=== PATIENT | male | born 1975 | race Caucasian/White ===

== ENCOUNTER 2018-07-05 01:42 | Outpatient (CLI) | payer BC, SELFPAY ==
[2018-07-05 11:21] LABS: Anion Gap 8.1 mmol/L (3-11); BUN 18 mg/dL (7-18); CO2 29.9 mmol/L (21.0-32.0); CREATININE 1.09 mg/dL (0.70-1.30); Calcium 8.8 mg/dL (8.5-10.1); Chloride 103 mmol/L (98-107); Cholesterol 230 mg/dL (50-200); Glucose 106 mg/dL (70-100); HDL Cholesterol 60 mg/dL (40-60); LDL CHOLESTEROL 156 mg/dL (<100); Potassium 4.3 mmol/L (3.5-5.1); Sodium 141 mmol/L (136-145); Triglyceride 107 mg/dL (30-150)
== END 2018-07-05 02:02 ==
PROVIDERS: PCP Family Medicine; Visit Provider Family Medicine
DX: Z00.00 Encounter for general adult medical examination without abnormal findings (principal); Z13.228 Encounter for screening for other metabolic disorders; Z13.220 Encounter for screening for lipoid disorders
CPT/HCPCS: 36415; 80048; 80061; 83721

== ENCOUNTER 2020-04-17 07:23 | Outpatient (CLI) | payer BC, SELFPAY ==
[2020-04-19 12:59] LABS: SARS-CoV-2 RNA Undetected (Undetected); SARS-CoV-2 Specimen Source Nasopharynx
== END 2020-04-17 07:43 ==
PROVIDERS: PCP Family Medicine; Visit Provider Family Medicine
DX: Z20.828 Contact with and (suspected) exposure to other viral communicable diseases (principal)
CPT/HCPCS: U0003

== ENCOUNTER 2020-09-10 02:52 | Outpatient (CLI) | payer BC, SELFPAY ==
[2020-09-11 19:01] LABS: COVID-19 RT-PCR UVMMC Result Negative (Negative)
== END 2020-09-10 03:12 ==
PROVIDERS: PCP Nurse Practitioner; Visit Provider Nurse Practitioner
DX: Z11.59 Encounter for screening for other viral diseases (principal)
CPT/HCPCS: U0003

== ENCOUNTER 2020-10-29 10:42 | Outpatient (CLI) | payer BC, SELFPAY ==
[2020-10-30 15:51] LABS: COVID-19 RT-PCR UVMMC Result Negative (Negative)
== END 2020-10-29 10:43 | disposition home or self-care (01) ==
LOC: LBO 10:42
PROVIDERS: PCP Nurse Practitioner; Visit Provider Nurse Practitioner
DX: Z20.822 Contact with and (suspected) exposure to COVID-19 (principal)
CPT/HCPCS: U0003

== ENCOUNTER 2021-09-27 03:13 | Outpatient (CLI) | payer BC, SELFPAY ==
[2021-09-27 11:07] LABS: Source Nasal/Nares
[2021-09-27 13:56] LABS: COVID-19 PCR Negative (Negative)
== END 2021-09-27 03:14 | disposition home or self-care (01) ==
LOC: LBO 03:14
PROVIDERS: PCP Nurse Practitioner; Visit Provider Surgery
DX: Z20.822 Contact with and (suspected) exposure to COVID-19 (principal)
CPT/HCPCS: 87635

== ENCOUNTER 2021-09-30 07:09 | Day surgery (SDC) | payer BC, SELFPAY ==
--- NOTE | 2021-09-30 06:34 | W.COLOREPORT ---
Colonoscopy Report Date of procedure: 09/30/21 Pre-op diagnosis general: Colon Cancer Screening Post-op diagnosis procedure note: same Procedure: Colonoscopy Surgeon: Stephanie Glover Anesthesia Type: General:No Airway (deidre Cortez CRNA) Estimated blood loss (mL): 0 Pathology: none sent Complications: None Disposition: same day Indications: The patient is here for Colonoscopy pre-op. He has no family history of colon cancer. He has not had any bowel habit changes. -Discussed colonoscopy bowel prep as well as the procedure. Discussed possible complications of the procedure to include bleeding, pain, perforation, missed small lesion/polyp, sore throat, aspiration and adverse reaction to the medications. Questions were answered to patient?s satisfaction. No guarantees were implied or given. Prep: Miralax/Dulcolax Procedure Start Time: 08:15 Procedure End Time: 08:38 Retraction Time: 10 minutes Findings: Normal colon Procedure Description: After informed consent was obtained the patient was taken to the procedure room and placed in a left decubitous position. Monitors were applied and a time out was done. The patients name, date of , procedure, allergies to medications and metal in their body was reviewed. The patient was then sedated. Once sedated and comfortable a rectal exam was done. External exam was normal. Internal exam revealed a normal sphincter tone and no palpable masses. The prostate felt smooth. The scope was then introduced and retro-flexed. No internal hemorrhoids, polyps or masses were identified on retro-flexion. The scope was then advanced to the cecum without difficulty. The ileocecal vlave and appendiceal orifice were identified. The prep was adequate. The scope was then slowly retracted over 10 minutes back into the rectum. There were no polyps. There was no diverticulosis noted. The scope was removed and the patient was woken up and taken back to Same day surgery in stable condition. The patient tolerated the procedure well and there were no immediate complications. Follow up: The patient should follow up in 10 years unless they develop changes in bowel habits or other new gastrointestinal complaints.
--- NOTE | 2021-09-30 06:36 | W.PM.DSUDISC ---
Discharge Plan Disposition Patient Disposition: HOME Condition: Good Discharge Details Reason For Visit: Colonoscopy Attending Provider: Stephanie Glover Primary Care Provider: Hilda Ortez Home Meds and New Rx's Prescriptions: Continued fexofenadine [Allergy Relief (fexofenadine)] 180 mg tablet 180 mg PO DAILY PRNRF: 0 epinephrine [EpiPen 2-Juan] 0.3 mg/0.3 mL auto-injector 0.3 mg IM ONCE Qty: 2 RF: 0 lorazepam 0.5 MG tablet 1 tab PO HS PRNQty: 30 RF: 0 Discontinued polyethylene glycol 3350 17 gram/dose powder 238 g PO ONCE Qty: 238 RF: 0 bisacodyl [Dulcolax (bisacodyl)] 5 mg tablet,delayed release (DR/EC) 5 mg PO ONCE Qty: 4 RF: 0 Discharge Instructions Additional Instructions: Findings: Normal Follow up: 10 years Please call if you develop: fevers >101.5 Nausea or Vomiting Abdominal pain that is not transient Rectal bleeding that is more then a tbsp A hard abdomen and inability to pass gas DAY SURGERY UNIT POST ENDOSCOPY INSTRUCTIONS Instructions for everyone who is given Anesthesia: For your safety, please do the following for the next 24 Hours: a. Do not drive or operate dangerous equipment b. Do not drink alcohol beverages or use any recreational drugs for the first 24 hours or while taking pain medications. The medications in your body may have a reaction that can be dangerous. c. Do not make any important decisions or sign any important papers 1. Generally there are no restrictions on your activity after a day or so has gone by, but you may feel a bit fatigued for a few days. 2. After you arrive home you may have a light meal and return to a normal diet as you can tolerate it without feeling sick to your stomach. 3. After surgery, you may feel pain or discomfort. This should be only transient, but if it persists please contact your doctor. 4. If there are any questions regarding the findings of your procedure, please feel free to contact your doctor. 6. If you are unable to contact your doctor with a problem, contact the hospital at [phone]. 7. Continue all your regular medications unless directed otherwise. I understand the above instructions and have no questions. Signature of Patient or Responsible Adult Escort Date/Time Name of Responsible Adult Escort Signature of Nurse Date/Time Activity:: Activity as Tolerated Diet:: As Tolerated Discharge Orders Discharge Orders: Discharge Order (Routine); Ordered 09/30/21 Ordered By: Stephanie Glover
[2021-09-30 07:18] VITALS: BP 152/96; PULSE 79; RESP 16; TEMP 35.8; O2SAT 99
--- NOTE | 2021-09-30 07:49 | ANES.PREOP_ITS ---
General Info Date of Service Date Performed: 09/30/21 Height: 5 ft 10 in Weight: 87.1 kg Body Mass Index (BMI): 27.5 Surgical Procedure: Operation Date: 09/30/21 08:05 Proposed Procedures Side Surgeon harini Glover MD Meds Allergies and Home Medications Allergies Allergy/AdvReac Type Severity Reaction Status Date / Time bee venom protein (honey bee) Allergy Severe faint and Verified 09/30/21 07:17 irregular heartbeat Penicillins Allergy Unknown as a Verified 09/30/21 07:17 child Home Medication Medication Instructions Recorded lorazepam 1 tab PO HS PRN #30 tab 12/23/16 fexofenadine 180 mg tablet 180 mg PO DAILY PRN 03/08/21 epinephrine 0.3 mg/0.3 mL 0.3 mg IM ONCE #2 each 04/09/21 injection, auto-injector bisacodyl 5 mg tablet,delayed 5 mg PO ONCE #4 tab 09/19/21 release polyethylene glycol 3350 17 238 g PO ONCE #238 g 09/19/21 gram/dose oral powder Current Visit Medications: Current Medications Generic Name Dose Route Start Last Admin Trade Name Freq PRN Reason Stop Dose Admin Hyoscyamine Sulfate 0.125 mg 09/30/21 06:37 Hyoscyamine 0.125 Mg Sl/Oral/Chew SL DIRECTED PRN Ringer's Solution 1,000 mls @ 80 mls/hr 09/30/21 06:00 IV 10/27/21 23:59 [facility] IV Miscellaneous Supplies 1 each 09/30/21 06:00 Iv Access IV 10/27/21 23:59 DIRECTED [facility] Ondansetron HCl 4 mg 09/30/21 06:37 Ondansetron 4 Mg/2 Ml Vial IVP Q4H PRN PRN Nausea / Vomiting Sodium Chloride 0 ml 09/30/21 06:00 Normal Saline Flush 10 Ml Syr IV 10/27/21 23:59 PRN PRN Sodium Chloride 0 ml 09/30/21 06:00 Normal Saline 10 Ml Vial IJ 10/27/21 23:59 DIRECTED PRN Sterile Water 0 ml 09/30/21 06:00 Water,Injection,Sterile 10 Ml Vial IJ 10/27/21 23:59 DIRECTED PRN PFSH Active Problems Active Problems: Problem Status Onset Code 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 insect stings Z91.038 Lip lesion K13.0 HTN (hypertension) I10 Decreased urine stream R39.198 Screening for colon cancer Z12.11 Medical History Medical History Anxiety vagal episodes Trigeminal neuralgia of right side of face Tobacco Smoking/Tobacco Use Status: Former Tobacco Use Alcohol Alcohol Intake: current Alcohol intake frequency: 0-2 drinks per day Alcohol type: beer Substance Use Substance use type: does not use Details: alcohol last thursday Vital Signs and Lab Results Vital Signs Most Recent Vital Signs in EMR: Most Recent Vital Signs Temp Pulse Resp BP Pulse Ox 35.8 C L 79 16 152/96 H 99 09/30/21 07:18 09/30/21 07:18 09/30/21 07:18 09/30/21 07:18 09/30/21 07:18 Lab Results Blood Type / Crossmatch: No Data to Display Complete Blood Count: No Data to Display Complete Metabolic Panel: No Data to Display Liver Function Panel: No Data to Display Coagulation Panel: No Data to Display Cardiac Panel: No Data to Display Arterial Blood Gas: No Data to Display Venous Blood Gas: No Data to Display Pancreas Panel: No Data to Display Thyroid Panel: No Data to Display Infectious Disease: Coronavirus (COVID-19)(PCR) Negative (Negative) 09/27/21 08:43 09/27/21 Coronavirus 2019 Source Nasal/Nares 09/27/21 08:43 09/27/21 Blood Cultures: No Data to Display Toxicology Panel: No Data to Display Anesthesia Assessment and Plan Anesthesia History Personal History: No History of General Anesthesia Family History: No Family History of Anesthesia Complications Exercise Tolerance Exercise Tolerance: Metabolic Equivalents>4 Pertinent Negatives Pertinent Negatives: No Symptoms of GERD, No Major Cardiovascular Symptoms or Complaints, No Major Pulmonary Symptoms or Complaints and No History of CVA/TIA Cardiac & Pulmonary Exam Cardiac Exam: Normal S1/S2 Heart Sounds Pulmonary Exam: Clear Bilateral Breath Sounds Implantable Cardiac Device Does patient have a Pacemaker or an ICD?: No Airway Exam Known Difficult Airway: No Mallampati Class: 3 Mouth Opening: Narrow (< 3cm) Thyromental Distance: Greater than 3 cm Neck Range of Motion: Full ROM Neck Circumference: Normal Teeth Condition: Normal Dentition ASA Classification ASA Score: ASA 2 Emergency Case?: No NPO Status NPO Status: NPO Clears >2 hours, Solids >8 hours Anesthesia Plan Resuscitation Status: Full Code Anesthesia Technique: General Anesthesia Airway Planned: Natural Airway Monitors Used: Standard Monitors
[2021-09-30] MEDS: Lactated Ringers 1,000 ML 80 ML IV (07:50)
[2021-09-30 07:52] VITALS: BMI 27.5
[2021-09-30 08:46] VITALS: BP 116/77; PULSE 85; RESP 16; TEMP 37; O2SAT 97
--- NOTE | 2021-09-30 08:52 | W.ANESPOSTOP ---
Postoperative Evaluation Date, Time and Location Date Performed: 09/30/21 Time Performed: 08:52 Patient Location: Day Surgery Unit Vital Signs Most Recent Imported Vital Signs: Most Recent Vital Signs Temp Pulse Resp BP Pulse Ox 37.0 C 85 16 116/77 97 09/30/21 08:46 09/30/21 08:46 09/30/21 08:46 09/30/21 08:46 09/30/21 08:46 Pain Score Most Recent Pain Score: Most Recent Pain Score Pain Level 0 09/30/21 08:46 Assessment Mental Status: Awake (Alert & Oriented to Patient Baseline) Airway and Respiratory Function: Patent airway with normal (patient baseline) respiratory exam Cardiovascular Function: Hemodynamically Stable Hydration Status: Adequately Hydrated Nausea & Vomiting: No Nausea or Vomiting Pain: Pt. Denies Any Pain Peripheral Nerve Block: Patient did not receive a nerve block
[2021-09-30 09:15] VITALS: BP 130/88; PULSE 63; RESP 16; TEMP 36.3; O2SAT 100
== END 2021-09-30 09:35 | disposition home or self-care (01) ==
LOC: SUR 07:09
PROVIDERS: PCP Nurse Practitioner; Visit Provider Surgery
PROC: 0DJD8ZZ Inspection of Lower Intestinal Tract, Via Natural or Artificial Opening Endoscopic (ICD-10-PCS; CPT 45378; principal; 2021-09-30 08:00)
DX: Z12.11 Encounter for screening for malignant neoplasm of colon (principal)
CPT/HCPCS: 45378; J2001

== ENCOUNTER 2022-02-24 03:39 | Outpatient (CLI) | payer BC, SELFPAY ==
[2022-02-24 12:33] LABS: Abs Immature Grans 0.01 10^3/uL (0.0-0.06); Absolute Basophil Count 0.02 10^3/uL (0.0-0.2); Absolute Eosinophil Count 0.13 10^3/uL (0.0-0.7); Absolute Lymphocyte Count 1.82 10^3/uL (1.2-3.4); Absolute Monocyte Count 0.39 10^3/uL (0.1-0.8); Absolute Neutrophil Count 2.39 10^3/uL (1.2-6.7); Basophils % 0.4; Eosinophils % 2.7; HCT 44.6 % (40.0-50.0); HGB 15.5 g/dL (13.5-17.5); Immature Grans % 0.2; Lymphocytes % 38.2; MCH 31.3 pg (27.0-33.0); MCHC 34.8 % (32.0-36.0); MCV 90 fL (80-95); MPV 10.1 fL (8.0-11.0); Monocytes % 8.2; Neutrophils % 50.3; Platelet Count 201 10^3/uL (130-400); RBC 4.95 10^6/uL (4.36-5.78); RDW 12.4 % (11.8-14.1); RDW-SD 40.7 fL; WBC 4.76 10^3/uL (4.4-10.8)
[2022-02-25 08:09] LABS: PSA, Screening 0.4 ng/mL (<=2.5)
[2022-02-25 11:06] LABS: Lyme Ab w Rflx to Lyme Confirm Negative (Negative)
[2022-02-25 23:22] LABS: Anaplasma phagocytophilum Negative (Negative); B. miyamotoi PCR Negative (Negative); Babesia divergens/MO-1 Negative (Negative); Babesia duncani Negative (Negative); Babesia microti Negative (Negative); Ehrlichia chaffeensis Negative (Negative); Ehrlichia ewingii/canis Negative (Negative); Ehrlichia muris eauclairensis Negative (Negative)
== END 2022-02-24 03:40 | disposition home or self-care (01) ==
LOC: LOS 03:39
PROVIDERS: PCP Nurse Practitioner; Visit Provider Nurse Practitioner
DX: M79.18 Myalgia, other site (principal); R53.83 Other fatigue; W57.XXXA Bitten or stung by nonvenomous insect and other nonvenomous arthropods, initial encounter; T14.8XXA Other injury of unspecified body region, initial encounter; Z12.5 Encounter for screening for malignant neoplasm of prostate
CPT/HCPCS: 36415; 84153; 87798; 84443; 85025; 86618

== ENCOUNTER 2022-04-12 12:30 | Emergency (ER) | payer BC, SELFPAY ==
[2022-04-12 12:49] VITALS: BP 153/85; PULSE 65; RESP 16; TEMP 37.2; O2SAT 100
--- NOTE | 2022-04-12 13:23 | W.ED.GENAD ---
Discharge Plan Disposition Patient Disposition: HOME Condition: Stable Discharge Details Clinical Impression: Yellow jacket sting Primary Care Provider: Hilda Ortez ED Provider: Paola Perea Home Meds and New Rx's Prescriptions: Continued fexofenadine [Allergy Relief (fexofenadine)] 180 mg tablet 180 mg PO DAILY PRN ibuprofen 800 mg tablet 800 mg PO TID Qty: 30 0RF epinephrine [EpiPen 2-Juan] 0.3 mg/0.3 mL auto-injector 0.3 mg IM ONCE Qty: 2 0RF Rx Instructions: as a single dose lorazepam 0.5 mg tablet 0.5 mg PO HS PRN (Reason: anxiety) Qty: 30 0RF diphenhydramine HCl [Benadryl] 25 mg Capsule 25 mg PO PRN PRN Discharge Instructions Additional Instructions: Continue taking Benadryl as needed for rash and itch Midcycle contacted and ibuprofen for discomfort as needed Please return immediately and use your EpiPen should you develop lip swelling, difficulty swallowing, shortness of breath Referrals: Hilda Ortez, [employer] SUPERVISOR [Primary Care Provider] - Discharge Data Discharge Date/Time-TO BE ENTERED AT DEPARTURE: 04/12/22 13:33 Medical Decision Making Observed patient for approximately an hour No evidence of anaphylaxis Will continue to take Benadryl as needed Appropriate use of epinephrine pen reviewed Return precautions discussed and patient expressed understanding HPI General Date/Time Provider Initiated Documentation: 04/12/22 13:23. HPI Narrative: This 46-year-old gentleman with history of hymenoptera allergy presents with report of yellowjacket being to his face, right jaw approximately an hour and a half prior to arrival. He has an EpiPen but did not use it as he did not have anaphylactic signs or symptoms. He did take 2 Benadryl, 50 mg prior to arrival. He states that his symptoms have remained stable. He has mild swelling and tenderness over the area of the sting. He denies any difficulty swallowing, shortness of breath, or swelling to his lips. He denies any nausea or vomiting. He denies ever having an anaphylactic episode to bee stings in the past. Related Data Home Medications Medication Instructions Recorded Confirmed fexofenadine 180 mg tablet 180 mg PO DAILY PRN 03/08/21 04/12/22 (Allergy Relief (fexofenadine)) epinephrine 0.3 mg/0.3 mL 0.3 mg (0.3 mL) IM ONCE #2 ea 04/09/21 04/12/22 injection, auto-injector (EpiPen 2-Juan) lorazepam 0.5 mg tablet 0.5 mg PO HS PRN anxiety #30 tabs 11/07/21 04/12/22 ibuprofen 800 mg tablet 800 mg PO TID #30 tabs 01/07/22 04/12/22 diphenhydramine HCl 25 mg capsule 25 mg PO PRN PRN 04/12/22 04/12/22 (Benadryl) Previous Rx's Medication Instructions Recorded epinephrine 0.3 mg/0.3 mL 0.3 mg (0.3 mL) IM ONCE #2 ea 04/09/21 injection, auto-injector (EpiPen 2-Juan) lorazepam 0.5 mg tablet 0.5 mg PO HS PRN anxiety #30 tabs 11/07/21 ibuprofen 800 mg tablet 800 mg PO TID #30 tabs 01/07/22 Allergies Allergy/AdvReac Type Severity Reaction Status Date / Time bee venom protein (honey bee) Allergy Severe faint and Verified 04/12/22 12:53 irregular heartbeat Penicillins Allergy Unknown as a Verified 04/12/22 12:53 child General Stated Complaint: Allergic IRINA: 4 Review of Systems All systems reviewed & are unremarkable except as noted in HPI and below PFSH All Active Problems (Updated 04/12/22 @ 13:25 by CARLTON Mitchell) Yellow jacket sting (Acute) Anxiety (Chronic) 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) HTN (hypertension) (Chronic) white coat- normal BP at home Medical History (Updated 04/12/22 @ 13:25 by CARLTON Mitchell) Allergic to insect stings Anxiety vagal episodes Normal colonoscopy (~09/2021) Trigeminal neuralgia of right side of face Surgical History (Updated 10/08/21 @ 15:31 by iQng Walters RN) History of colonoscopy (~09/2021) Family History Father Alzheimer's disease Depression Sister Neoplasm CERVICAL Paternal Grandfather Diabetes Maternal Grandmother Neoplasm BRAIN Social History (Updated 03/11/22 @ 12:16 by Renetta Cory) Smoking/Tobacco Use Status: Former Tobacco Use tobacco type: smokeless tobacco Quit Date: 09/21/01 Smoking risk assessment performed?: Yes Alcohol Intake: current Alcohol Intake frequency: a few times a week Alcohol type: beer, wine and hard liquor Drug use: Never Substance use type: does not use Details: alcohol last thursday Caregiver/Support person: Yes Household members: spouse Housing: house Communication Needs: None Do you need help understanding health information?: Never current occupation: FORESTER Pets and animals: Yes Pets and animals: cat(s), dog(s) and farm animals Sexually active: Yes Do you think of yourself as: straight/heterosexual Current gender identity: male What is your relationship status?: How often do you talk on the phone with friends or family?: three or more times per week How often do you get together with friends or relatives?: twice per week Do you belong to any clubs or organized social groups?: yes Panel score (0-1 are the most socially isolated patients): 3 What type of physical activity do you participate in: bicycling and other Details: Hiking,Skiing Duration: > 90 minutes/day Frequency: 3-4 times per week Mariya/Druze: [employer] Special mariya needs: No Do you feel safe at home: Yes Do you feel safe in your relationship?: Yes Exam Const General: cooperative, comfortable and no acute distress [facility] Head images: 1. Sting site, mild swelling, no erythema, no perioral swelling, uvula midline, maintaining secretions Neck Other: No stridor Resp Effort & Inspection: normal respiratory effort Auscultation: clear to auscultation bilaterally Cardio Rate: regular rate Rhythm: regular rhythm Skin Other: Mild erythema surrounding skinwithout urticaria Neuro General: patient alert and patient oriented x3 Course Vital Signs Vital signs: Vital Signs Temperature 37.2 C 04/12/22 12:49 Pulse 65 04/12/22 12:49 Respiratory Rate 16 04/12/22 12:49 Blood Pressure 153/85 H 04/12/22 12:49 Pulse Oximetry 100 04/12/22 12:49 Temperature 37.2 C 04/12/22 12:49 Temperature Source Temporal Artery Scan 04/12/22 12:49 Pulse 65 04/12/22 12:49 Respiratory Rate 16 04/12/22 12:49 Respiratory Effort 04/12/22 12:52 Blood Pressure 153/85 H 04/12/22 12:49 Blood Pressure Position Sitting 04/12/22 12:49 Pulse Oximetry 100 04/12/22 12:49 Pain Level 0 04/12/22 12:49
== END 2022-04-12 13:33 | disposition home or self-care (01) ==
PROVIDERS: Emergency Provider Physician Assistant; PCP Nurse Practitioner
DX: T63.461A Toxic effect of venom of wasps, accidental (unintentional), initial encounter (principal); R22.0 Localized swelling, mass and lump, head; Z87.891 Personal history of nicotine dependence
CPT/HCPCS: 99281

== ENCOUNTER 2023-04-07 02:49 | Outpatient (CLI) | payer BC, SELFPAY ==
[2023-04-07 12:10] LABS: HCT 44.9 % (40.0-50.0); HGB 15.5 g/dL (13.5-17.5); MCH 31.1 pg (27.0-33.0); MCHC 34.5 % (32.0-36.0); MCV 90 fL (80-95); MPV 10.4 fL (8.0-11.0); Platelet Count 217 10^3/uL (130-400); RBC 4.98 10^6/uL (4.36-5.78); RDW 12.6 % (11.8-14.1); RDW-SD 41.4 fL; WBC 5.12 10^3/uL (4.4-10.8)
[2023-04-07 12:35] LABS: BUN 16 mg/dL (7-18); CREATININE 1.1 mg/dL (0.70-1.30); Calculated LDL 158 mg/dL (<100); Chloride 104 mmol/L (98-107); Cholesterol 228 mg/dL (<200); Estimated GFR 82.29 (mL/min/1.73m2); Glucose 101 mg/dL (74-106); HDL Cholesterol 47 mg/dL (40-60); Potassium 4.3 mmol/L (3.5-5.1); Sodium 140 mmol/L (136-145); Triglyceride 116 mg/dL (<150)
[2023-04-08 11:26] LABS: Lyme Ab w Rflx to Lyme Confirm Negative (Negative)
[2023-04-10 00:34] LABS: Anaplasma phagocytophilum Negative (Negative); B. miyamotoi PCR Negative (Negative); Babesia divergens/MO-1 Negative (Negative); Babesia duncani Negative (Negative); Babesia microti Negative (Negative); Ehrlichia chaffeensis Negative (Negative); Ehrlichia ewingii/canis Negative (Negative); Ehrlichia muris eauclairensis Negative (Negative)
== END 2023-04-07 02:50 | disposition home or self-care (01) ==
LOC: LOS 02:50
PROVIDERS: PCP Nurse Practitioner Family; Visit Provider Nurse Practitioner Family
DX: Z00.00 Encounter for general adult medical examination without abnormal findings (principal); F41.9 Anxiety disorder, unspecified; I10 Essential (primary) hypertension; T14.8XXA Other injury of unspecified body region, initial encounter; W57.XXXA Bitten or stung by nonvenomous insect and other nonvenomous arthropods, initial encounter
CPT/HCPCS: 36415; 80048; 80061; 85027; 87798; 86618

== ENCOUNTER 2023-09-04 01:16 | Outpatient (CLI) | payer BC, SELFPAY ==
[2023-09-07 11:41] LABS: Lyme Ab w Rflx to Lyme Confirm Negative (Negative)
== END 2023-09-04 01:17 | disposition home or self-care (01) ==
LOC: LOS 01:17
PROVIDERS: PCP Nurse Practitioner Family; Visit Provider Nurse Practitioner Family
DX: R53.83 Other fatigue (principal); M79.18 Myalgia, other site; W57.XXXA Bitten or stung by nonvenomous insect and other nonvenomous arthropods, initial encounter; T14.8XXA Other injury of unspecified body region, initial encounter
CPT/HCPCS: 36415; 86618

== ENCOUNTER 2024-03-21 04:03 | Outpatient (CLI) | payer BC, SELFPAY ==
[2024-03-21 12:38] LABS: BUN 17 mg/dL (7-18); CREATININE 1.1 mg/dL (0.70-1.30); Calculated LDL 142 mg/dL (<100); Chloride 104 mmol/L (98-107); Cholesterol 216 mg/dL (<200); Estimated GFR 81.78 (mL/min/1.73m2); Glucose 124 mg/dL (74-106); HDL Cholesterol 57 mg/dL (40-60); Potassium 4.2 mmol/L (3.5-5.1); Sodium 142 mmol/L (136-145); Triglyceride 85 mg/dL (<150)
== END 2024-03-21 04:04 | disposition home or self-care (01) ==
LOC: LOS 04:03
PROVIDERS: PCP Nurse Practitioner Family; Referring Provider Nurse Practitioner Family; Visit Provider Nurse Practitioner Family
DX: Z00.00 Encounter for general adult medical examination without abnormal findings (principal); I10 Essential (primary) hypertension; F41.9 Anxiety disorder, unspecified; R73.09 Other abnormal glucose
CPT/HCPCS: 36415; 80048; 80061

== ENCOUNTER 2025-03-27 02:24 | Outpatient (CLI) | payer BC, SELFPAY ==
--- NOTE | 2025-03-27 05:15 | ETT_ITS ---
APPROVED REPORT Exam: Exercise Treadmill Patient Location: Out-Patient Room/Bed: Stress Nurse: Agata Otto RN; Trudy Tejada RN Ordering Provider:JAMARI MOON, Contact Number: [phone] BMI: 27.25 Baseline Rhythm: Sinus Rhythm Indications: sensation of chest pressure, other chest pain Medical History Medical History: anxiety, trigeminal neuralgia right side of face, HTN Cardiac Medications: albuterol sulfate, fenofenadine, lorazepam Allergies: honey bee, penicillins Cardiac Risk Factors: FAMILY HX, HTN, former smoker Previous Cardiac Procedures: none Pretest Chest Pain Characteristics: none Exercise History: Physically active Physical Disabilities: none Lung Sounds: Clear to auscultation Heart Sounds: regular Stress Test Details Test: Exercise stress testing was performed using a Lobito protocol. Rest Stress HR Resting HR Supine: 61 bpm Max Heart Rate (APMHR): 169 bpm Resting HR Standin bpm Target HR (85% APMHR): 144 bpm Max HR Achieved: 169 bpm % of APMHR: 100 Recovery HR: 85 bpm HR response to stress: Normal HR response to stress BP Resting BP Supine: 140/86 mmHg Resting BP Standin/90 mmHg Max BP: 208/84 mmHg Recovery BP: 142/82 mmHg BP response to stress: Normal blood pressure response to stress. ECG Resting ECG: Sinus Rhythm Ectopy: none Stress ECG: Sinus Tachycardia ST Change: No significant ST segment changes noted Arrhythmia: rare PVC, occasional PACs Recovery ECG: Sinus Rhythm Recovery ST Change: No significant ST segment changes noted Recovery Arrhythmia: occasional PACs Clinical Reason for Termination: Target HR Achieved, 100% Stress Symptoms: none Exercise duration: 10 min16 sec Highest Stage Reached: Stage 4: 4.2 mph at 16% grade. Exercise capacity: 12.26 METs Angina Score: none [place] Treadmill Score: 8.2 Rate Pressure Product: [id number] Stress ECG Conclusion 1. Resting electrocardiogram was normal 2. Patient exercised on the Lobito protocol and completed a workload of 12 METS 3. Normal heart rate and blood pressure response to exercise. The patient achieved 100% of maximal predicted heart rate for age 4. There was no electrocardiographic evidence of myocardial ischemia 5. There were no significant dysrhythmias [place] Treadmill Score is 8.2 which is Low risk. Stress Test Summary STAGE Time (mins) Speed (mph) Grade (%) HR BP SpO2 SYMPTOMS METS Supine 61 140/86 98 Standing 69 138/90 1 3 1.7 10 100 152/78 97 4.5 2 6 2.5 12 120 178/84 96 7 3 9 3.4 14 154 202/88 93 10 4 12 4.2 16 169 13 1 min recovery 126 208/84 3 min recovery 85 174/84 98 6 min recovery 85 142/82 Patient denied symptoms during test. Pateint met his max 100% HR. Treadmilll stopped. Patient left ambulatory in no distress.
== END 2025-03-27 02:44 ==
LOC: DI 02:24
PROVIDERS: PCP Nurse Practitioner Family; Visit Provider Nurse Practitioner Family
DX: R07.89 Other chest pain (principal)
CPT/HCPCS: 93017

== ENCOUNTER 2025-03-27 02:54 | Outpatient (CLI) | payer BC, SELFPAY ==
--- NOTE | 2025-03-27 05:15 | DI.RAD_ITS ---
Exam(s) XR THORACIC SPINE COMPLETE EXAM: XR THORACIC SPINE COMPLETE CLINICAL HISTORY: mid back pain,M54.6. TECHNIQUE: 2D digital imaging was performed. Three views. COMPARISON: No exams were available for comparison FINDINGS: BONES: There is no fracture or destructive lesion. The vertebral bodies and posterior elements are unremarkable. ALIGNMENT: Within normal limits. DISKS: Interverebral disc spaces are maintained. SOFT TISSUE: Visualized lungs are clear. IMPRESSION: Unremarkable radiographs of the thoracic spine. DATA REPOSITORY: RADIATION DOSE DELIVERED:
== END 2025-03-27 03:14 ==
LOC: DI 02:54
PROVIDERS: PCP Nurse Practitioner Family; Visit Provider Nurse Practitioner Family
DX: M54.6 Pain in thoracic spine (principal)
CPT/HCPCS: 72072

== ENCOUNTER 2025-05-24 10:19 | Outpatient (CLI) | payer BC, SELFPAY ==
[2025-05-24 09:04] LABS: ALT 21 U/L (16-63); AST 28 U/L (15-37); Albumin 3.8 g/dL (3.4-5.0); Alkaline Phosphatase 62 U/L (46-116); Anion Gap 4.6 mmol/L (3-11); BUN 18 mg/dL (7-18); Bilirubin, Total 0.5 mg/dL (0.2-1.0); CO2 35.4 mmol/L (21.0-32.0); Calcium 9.0 mg/dL (8.5-10.1); Calculated LDL 152 mg/dL (<100); Chloride 101 mmol/L (98-107); Cholesterol 234 mg/dL (<200); Estimated GFR 91.12 (mL/min/1.73m2); Glucose 104 mg/dL (74-106); HDL Cholesterol 49 mg/dL (>or=40); Potassium 4.1 mmol/L (3.5-5.1); Sodium 141 mmol/L (136-145); Total Protein 7.2 g/dL (6.4-8.2); Triglyceride 165 mg/dL (<150)
[2025-05-24 17:28] LABS: PSA, Screening 0.4 ng/mL (<=3.5)
== END 2025-05-24 10:20 | disposition home or self-care (01) ==
LOC: LBO 10:19
PROVIDERS: PCP Nurse Practitioner Family; Visit Provider Nurse Practitioner Family
DX: Z12.5 Encounter for screening for malignant neoplasm of prostate (principal); Z00.00 Encounter for general adult medical examination without abnormal findings; F41.9 Anxiety disorder, unspecified; I10 Essential (primary) hypertension
CPT/HCPCS: 36415; 80053; 80061; 84153